=== PATIENT | male | born 1980 | race Caucasian/White ===

== ENCOUNTER 2019-03-08 21:44 | Emergency (ER) | payer SELFPAY ==
[2019-03-08] MEDS ORDERED: methylPREDNISolone Sod Succ/PF 125 MG/2 ML VIAL ONE (21:58)
[2019-03-08] MEDS ORDERED: Ondansetron PF 4 MG/2 ML Vial ONE (21:58)
[2019-03-08 22:39] LABS: Eosinophils 2 % (0-10); Hemoglobin 16.6 g/dL (14.0-18.0); Lymphocytes 40 % (21-51); MDiff Complete? YES; Mean Corpuscular HGB CONC 33.3 g/dL (32.0-36.0); Mean Corpuscular Hemoglobin 28.9 pg (27.0-31.0); Mean Corpuscular Volume 86.7 fL (78.0-98.0); Mean Platelet Volume 9.4 fL (7.4-10.4); Monocytes 6 % (0-10); Neutrophil 52 % (42-75); Platelet Count 241 thou/uL (130-400); Platelet Morphology Comment Appears Adequate; RBC Distribution Width 11.5 % (11.5-14.5); RBC Morphology Normal; Red Blood Cell (RBC) Count 5.75 mill/uL (4.70-6.10); White Blood Cell (WBC) Count 21.1 thou/uL (4.8-10.8)
[2019-03-08 22:41] LABS: ALT (SGPT) 19 U/L (8-55); AST (SGOT) 19 U/L (5-34); Albumin 4.4 g/dL (3.5-5.0); Alkaline Phosphatase 78 U/L (40-150); Anion Gap 17 mmol/L (10-20); BUN (Urea Nitrogen) 17 mg/dL (8.9-20.6); Bilirubin, Total 0.4 mg/dL (0.2-1.2); Calc. Creatinine Clearance 0 mL/min (70-130); Calcium 9.5 mg/dL (7.8-10.44); Carbon Dioxide 25 mmol/L (22-29); Chloride 103 mmol/L (98-107); Estimated GFR-MDRD 65; Globulin 3.1 g/dL (2.4-3.5); Glucose 111 mg/dL (70-105); Potassium 3.7 mmol/L (3.5-5.1); Protein, Total 7.5 g/dL (6.0-8.3); Sodium 141 mmol/L (136-145)
[2019-03-08] MEDS ORDERED: Sodium Chloride 0.9% 1,000 ML ONE ×2 (22:49)
== END 2019-03-08 23:33 | disposition home or self-care (01) ==
LOC: NAV ERS 21:44
DX: T63.441A Toxic effect of venom of bees, accidental (unintentional), initial encounter (principal); T67.2XXA Heat cramp, initial encounter; Z87.891 Personal history of nicotine dependence
CPT/HCPCS: 36415; 80053; 85025; 96361; 96374; 96375; J2405; J2930; J7050